=== PATIENT | male | born 2000 | race American Indian/Alaskan Native ===

== ENCOUNTER 2019-01-16 18:10 | Emergency (ER) | payer OTHER ==
[2019-01-16] MEDS ORDERED: dexAMETHasone 20 MG/5 ML VIAL IV ONE (18:50)
[2019-01-16] MEDS ORDERED: SODIUM CHLORIDE 0.9% 1000 ML 1,000 ML IV ONE (18:51)
[2019-01-16] MEDS ORDERED: CLINDAMYCIN 600 MG/50 mL 600 MG/50 ML BAG IV ONE (18:51)
--- NOTE | 2019-01-16 19:18 | Emergency Department Report ---
<ALFREDO MUNIZCRISTOBAL Davidson - Last Filed: 01/16/19 23:48> ED ENT HPI - General Chief complaint: Sore Throat Stated complaint: UNABLE TO SWALLOW/CANT TALK Time Seen by Provider: 01/16/19 18:44 - Related Data Allergies Allergy/AdvReac Type Severity Reaction Status Date / Time No Known Allergies Allergy Unverified 01/16/19 18:13 ED Dental HPI - General Chief complaint: Sore Throat Stated complaint: UNABLE TO SWALLOW/CANT TALK Time Seen by Provider: 01/16/19 18:44 - Related Data Allergies Allergy/AdvReac Type Severity Reaction Status Date / Time No Known Allergies Allergy Unverified 01/16/19 18:13 ED Physical Exam - General General appearance: alert, in no apparent distress - Head Head exam: Present: atraumatic, normocephalic - Eye Eye exam: Present: normal appearance - ENT ENT exam: Present: mucous membranes moist, other - Neck Neck exam: Present: normal inspection, tenderness - Respiratory Respiratory exam: Present: normal lung sounds bilaterally. Absent: respiratory distress - Cardiovascular Cardiovascular Exam: Present: regular rate, normal rhythm. Absent: systolic murmur, diastolic murmur, rubs, gallop - GI/Abdominal GI/Abdominal exam: Present: soft, normal bowel sounds. Absent: distended, tenderness, guarding - Rectal Rectal exam: Present: deferred - Extremities Exam Extremities exam: Present: normal inspection - Back Exam Back exam: Present: normal inspection - Neurological Exam Neurological exam: Present: alert, oriented X3 - Psychiatric Psychiatric exam: Present: normal affect, normal mood - Skin Skin exam: Present: warm, dry, intact, normal color. Absent: rash ED Course - Reevaluation(s) Reevaluation #1: Patient's the patient done. I examined patient. I discussed clinical findings with patient. 01/16/19 19:20 Reevaluation #2: I discussed all results with patient. I discussed plan of care and transfer the patient. Patient agrees with plan of care and transfer. 01/16/19 23:48 ED Medical Decision Making - Lab Data Result diagrams: 01/16/19 19:55 01/16/19 19:55 ED Disposition Clinical Impression: Peritonsillar abscess Leukocytosis Qualifiers: Leukocytosis type: unspecified Qualified Code(s): D72.829 - Elevated white blood cell count, unspecified Disposition: DC/TX-70 ANOTHER TYPE HLTHCARE Condition: Stable Instructions: Peritonsillar Abscess (ED) Referrals: KYLE PEREZ [Other] - 2-3 Days <ZENA BAHENA - Last Filed: 01/17/19 00:24> ED ENT HPI - General Source: patient Mode of arrival: Ambulatory Limitations: No Limitations - History of Present Illness Initial comments: patient is a 19-year-old male who presents to the emergency room with complaints of a sore throat that began 2 days ago. States he has associated pain with swallowing. States it's becoming difficult to swallow his secretions. pt has not been able to eat and has only drank just a little bit due to the difficulty with swallowing. he states he had a fever yesterday. denies having this in the past. denies any past medical history or allergies to medications. His immunizations are up-to-date per pt ED Dental HPI - General Source: patient Mode of arrival: Ambulatory Limitations: No Limitations ED Review of Systems ROS: Stated complaint: UNABLE TO SWALLOW/CANT TALK Other details as noted in HPI Comment: All other systems reviewed and negative ED Past Medical Hx - Past Medical History Previous Medical History?: No - Surgical History Past Surgical History?: No - Social History Smoking Status: Never Smoker Substance Use Type: None ED Physical Exam - General Limitations: No Limitations General appearance: alert, in no apparent distress - Head Head exam: Present: atraumatic, normocephalic - Eye Eye exam: Present: normal appearance - ENT ENT exam: Present: mucous membranes moist, other (left sided tonsillar edema involving the left soft palate, muffled voice, pt is spitting out secretions in emesis bag) - Respiratory Respiratory exam: Present: normal lung sounds bilaterally. Absent: respiratory distress, wheezes, rales, rhonchi, stridor, chest wall tenderness, accessory muscle use, decreased breath sounds, prolonged expiratory - Cardiovascular Cardiovascular Exam: Present: regular rate, normal rhythm, normal heart sounds. Absent: systolic murmur, diastolic murmur, rubs, gallop - Neurological Exam Neurological exam: Present: alert, oriented X3 - Psychiatric Psychiatric exam: Present: normal affect, normal mood - Skin Skin exam: Present: warm, dry, intact ED Course Vital Signs 01/16/19 01/16/19 01/16/19 18:18 19:04 19:30 Temperature 99.0 F Pulse Rate 129 H 113 H 104 H Respiratory 20 26 H 33 H Rate Blood Pressure 136/93 130/81 O2 Sat by Pulse 99 100 100 Oximetry 01/16/19 01/16/19 01/16/19 19:56 20:00 20:30 Temperature 98.7 F Pulse Rate 106 H 107 H Respiratory 37 H 24 Rate Blood Pressure 133/76 117/76 O2 Sat by Pulse 100 100 Oximetry 01/16/19 01/16/19 01/16/19 21:04 21:30 22:00 Temperature Pulse Rate 101 H 96 H Respiratory 27 H 17 Rate Blood Pressure 117/76 119/76 122/74 O2 Sat by Pulse 100 98 96 Oximetry 01/16/19 01/16/19 01/16/19 22:30 23:00 23:30 Temperature Pulse Rate 97 H 96 H 87 Respiratory 22 27 H 15 Rate Blood Pressure 119/75 122/79 117/75 O2 Sat by Pulse 99 99 96 Oximetry - Consultations Consultation #1: 01/16/19 21:53 spoke with walt Chase transfer line regarding pt and she states that they have "med surg saturation, and she will reach out to her resources, but advised to call other hospitals," will call [facility] 01/16/19 21:56 spoke with alanna Hookery transfer line, states med surg over saturation, unable to accept pt for transfer. Consultation #2: 01/16/19 21:59 spoke with nurse Richelle for [facility] transfer, [facility] and [facility] do not have ENT, only [facility] has ENT will reach out to them and call back Consultation #3: 01/16/19 22:[address] Joshi, ENT at [facility], will consult on patient, no further recommendations at this time, the transfer line will call back for hospitalist admitting doctor 01/16/19 22:33 spoke with Shruthi nurse for transfer line at [facility], she states that Dr. Joshi, ENT was concerned that if pt was transferred to [facility] pt "would have difficulty following up", nurse states that she is going to speak with [facility] Larry for acceptance 01/16/19 22:58 spoke with nurse Shruthi transfer line at [facility], she states larry and zak were concerned that pt would not follow up, discussed with transfer line that this is a potential EMTALA violation, she states that either facility will accept, she states that she will call back with an accepting provider at [facility] 01/16/19 23:[address] Martinez, hospitalist at [facility], will accept and resume care of pt, pt will be transferred via EMS, pt is stable for transfer. ED Medical Decision Making - Lab Data Result diagrams: 01/16/19 19:55 01/16/19 19:55 Lab Results 01/16/19 01/16/19 Range/Units 19:55 19:55 WBC 15.3 H (4.5-11.0) K/mm3 RBC 5.06 H (3.65-5.03) M/mm3 Hgb 14.0 (11.8-15.2) gm/dl Hct 41.2 (35.5-45.6) % MCV 81 L (84-94) fl MCH 28 (28-32) pg MCHC 34 (32-34) % RDW 13.4 (13.2-15.2) % Plt Count 216 (140-440) K/mm3 Lymph % (Auto) 7.6 L (13.4-35.0) % [place] % (Auto) 6.3 (0.0-7.3) % Eos % (Auto) 0.3 (0.0-4.3) % Baso % (Auto) 0.5 (0.0-1.8) % Lymph # 1.2 (1.2-5.4) K/mm3 [place] # 1.0 H (0.0-0.8) K/mm3 Eos # 0.1 (0.0-0.4) K/mm3 Baso # 0.1 (0.0-0.1) K/mm3 Seg Neutrophils % 85.3 H (40.0-70.0) % Seg Neutrophils # 13.1 H (1.8-7.7) K/mm3 Sodium 138 (137-145) mmol/L Potassium 3.6 (3.6-5.0) mmol/L Chloride 99.9 (98-107) mmol/L Carbon Dioxide 19 L (22-30) mmol/L Anion Gap 23 mmol/L BUN 20 (9-20) mg/dL Creatinine 0.9 (0.8-1.5) mg/dL Estimated GFR > 60 ml/min BUN/Creatinine Ratio 22 % Glucose 97 (75-100) mg/dL Calcium 8.7 (8.4-10.2) mg/dL - Radiology Data Radiology results: report reviewed CT neck w con INDICATION: left sided tonsillar swelling, r/o abscess. TECHNIQUE: Contiguous thin cut axial images obtained through the neck following IV contrast. Sagittal and coronal reconstructions performed by the technologist. All CT scans at this location are performed using CT dose reduction for ALARA by means of automated exposure control. COMPARISON: None available. FINDINGS: This is an abnormal CT scan. Left faucial tonsil is swollen. Left peritonsillar abscess is seen measuring 15 mm (transverse dimension) x 25 mm (height) x 17 mm (sagittal). Airway is not compromised. Because of paucity of fat fatty tissue, fascia planes are not seen well. Very few reactive lymph nodes are seen. MUCOSAL SPACE: Nasopharynx, floor of the mouth and hypopharynx are normal. Please note uvula is swollen. Epiglottis is normal. LYMPH NODES: No significant adenopathy appreciated. SALIVARY GLANDS: Parotid, submandibular, and visualized sublingual glands are within normal limits. THYROID GLAND: Unremarkable. PARANASAL SINUSES: Visualized paranasal sinuses and mastoid air cells are essentially clear. SPINE: No significant abnormality of the cervical spine appreciated. VASCULAR STRUCTURES: Vascular structures are grossly normal in appearance. Surrounding soft tissues are otherwise grossly normal. IMPRESSION: Left peritonsillar abscess Signer Name: Maddy Srivastava MD Signed: 01/16/2019 9:27 PM Workstation Name: [id number] Transcribed By: BS Dictated By: Maddy Chavis MD Electronically Authenticated By: Maddy Chavis MD Signed Date/Time: 01/16/192126 DD/ 21 TD/TT: - Medical Decision Making patient is a 19-year-old male who presents to the emergency room with complaints of a sore throat that began 2 days ago. States he has associated pain with swallowing. States it's becoming difficult to swallow his secretions. pt has not been able to eat and has only drank just a little bit due to the difficulty with swallowing. he states he had a fever yesterday. denies having this in the past. denies any past medical history or allergies to medications. His immunizations are up-to-date per pt. vitals with tachycardia, otherwise stable. on exam: left sided tonsillar edema involving the left soft palate, muffled voice, pt is spitting out secretions in emesis bag, no stridor, no respiratory compromise. labs significant for WBC of 15.3. pt given IVF, clindamycin, and dexamethasone. CT neck with contrast: Left peritonsillar abscess. after multiple phone conversations, spoke with Dr. Joshi, ENT at [facility], will consult on patient, no further recommendations at this time, the transfer line will call back for hospitalist admitting doctor. spoke with Dr. Martinez [facility] at [facility], will accept and resume care of pt, pt will be transferred via EMS, pt is stable for transfer. - Differential Diagnosis tonsillitis, peritonsillar abscess, strep throat Critical Care Time: Yes Critical care time in (mins) excluding proc time.: 65 Critical care attestation.: If time is entered above; I have spent that time in minutes in the direct care of this critically ill patient, excluding procedure time. Critical Care Time: critical care time includes multiple bed sides evaluation, interpretation of laboratory tests and radiological tests, and multiple alliances consultant phone calls ED Disposition Is pt being admited?: No Does the pt Need Aspirin: No
[2019-01-16] MEDS ORDERED: MORPHINE 2 MG/1 ML INJ IV ONE (19:49)
[2019-01-16] MEDS ORDERED: MORPHINE 2 MG/1 ML INJ ONE (19:53)
[2019-01-16 20:12] LABS: Basophils # (Auto) 0.1 K/mm3 (0.0-0.1); Basophils % (Auto) 0.5 % (0.0-1.8); Eosinophils # (Auto) 0.1 K/mm3 (0.0-0.4); Eosinophils % (Auto) 0.3 % (0.0-4.3); Hematocrit 41.2 % (35.5-45.6); Lymphocytes # (Auto) 1.2 K/mm3 (1.2-5.4); Lymphocytes % (Auto) 7.6 % (13.4-35.0); Mean Corpuscular HGB Conc 34 % (32-34); Mean Corpuscular Volume 81 fl (84-94); Monocytes % (Auto) 6.3 % (0.0-7.3); Platelet Count 216 K/mm3 (140-440); Red Blood Count 5.06 M/mm3 (3.65-5.03); Red Cell Distribution Width 13.4 % (13.2-15.2)
[2019-01-16 20:32] LABS: BUN/Creatinine Ratio 22; Blood Urea Nitrogen 20 mg/dL (9-20); Calcium 8.7 mg/dL (8.4-10.2); Hemolysis Index 10
--- NOTE | 2019-01-16 21:31 | Cat Scan Report ---
CT neck w con INDICATION: left sided tonsillar swelling, r/o abscess. TECHNIQUE: Contiguous thin cut axial images obtained through the neck following IV contrast. Sagittal and russell l reconstructions performed by the technologist. All CT scans at this location are performed using CT dose reduction for ALARA by means of automated exposure control. COMPARISON: None available. FINDINGS: This is an abnormal CT scan. Left faucial tonsil is swollen. Left peritonsillar abscess is seen measuring 15 mm (transverse dimens ion) x 25 mm (height) x 17 mm (sagittal). Airway is not compromised. Because of paucity of fat fatty tissue, fascia planes are not seen well. Very few reactive lymph node s are seen. MUCOSAL SPACE: Nasopharynx, floor of the mouth and hypopharynx are normal. Please note uvula is swoll en. Epiglottis is normal. LYMPH NODES: No significant adenopathy appreciated. SALIVARY GLANDS: Parotid, submandibular, and visualized sublingual glands are within normal limits. THYROID GLAND: Unremarkable. PARANASAL SINUSES: Visualized paranasal sinuses and mastoid air cells are essentially clear. SPINE: No significant abnormality of the cervical spine appreciated. VASCULAR STRUCTURES: Vascular structures are grossly normal in appearance. Surrounding soft tissues are otherwise grossly normal. IMPRESSION: Left peritonsillar abscess Signer Name: Maddy Srivastava MD Signed: 01/16/2019 9:27 PM Workstation Name: [id number]
[2019-01-16] MEDS ORDERED: SODIUM CHLORIDE 0.9% 1000 ML IV SOLN IV ONE (22:41)
[2019-01-17 01:01] VITALS: BP 116/81
== END 2019-01-17 01:02 | disposition other institution (70) ==
LOC: ED 18:10
DX: J36 Peritonsillar abscess (principal); D72.829 Elevated white blood cell count, unspecified
CPT/HCPCS: 36415; 70491; 80048; 82140; 85025; 87040; 96365; 96375; 99291; J1100; J2270; J7030; Q9967